=== PATIENT | male | born 1960 ===

== ENCOUNTER 2022-12-16 06:36 | Day surgery (SDC) | payer OTHER | END 2022-12-16 11:00 | disposition home or self-care (01) | LOC: AMB-ENDOS 06:36 | PROVIDERS: ATTEND Colon & Rectal Surgery | DX: D12.2 Benign neoplasm of ascending colon (principal); K57.30 Diverticulosis of large intestine without perforation or abscess without bleeding; R19.4 Change in bowel habit; Z20.822 Contact with and (suspected) exposure to COVID-19 ==

== ENCOUNTER 2023-05-12 06:55 | Day surgery (SDC) | payer OTHER | END 2023-05-12 12:50 | disposition home or self-care (01) | LOC: AMB-ENDOS 06:55 | PROVIDERS: ATTEND Colon & Rectal Surgery | DX: D12.2 Benign neoplasm of ascending colon (principal); K63.5 Polyp of colon; K57.30 Diverticulosis of large intestine without perforation or abscess without bleeding; Z20.822 Contact with and (suspected) exposure to COVID-19 ==